=== PATIENT | male | born 1940 | race Caucasian/White ===

== ENCOUNTER 2016-05-29 16:05 | Emergency (ER) | payer OTHER ==
[~2016-05-29 16:05] MED LIST: OXYC1TAB3 PO
[2016-05-29 16:08] VITALS: TEMP 36.9; Ht 175.3 cm
[2016-05-29] MEDS ORDERED: MoRPHine SULFATE 10 MG/ML CARP/VIAL IM STA (16:39)
[2016-05-29] MEDS ORDERED: CLN150 PO (16:53)
[2016-05-29] MEDS ORDERED: METO25TA3 PO (16:53)
--- NOTE | 2016-05-29 17:54 | DIAGNOSTIC IMAGING REPORT ---
LUMBAR SPINE CT CT DOSE: 1016.30 mGy.cm HISTORY: severe lower back pain. TECHNIQUE: Multiaxial CT images of the lumbar spine were performed and reformatted in the sagittal and coronal plane without the use of contrast. COMPARISON: Lumbar spine 03/03/2016. 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 This is not significantly changed. Left-sided nephrolithiasis. No hydronephrosis identified. Paraspinal soft tissues are unremarkable. The visualized sacrum appears intact. There is 2 mm of anterolisthesis of L5 on S1. Moderate facet degenerative changes at L4-L5 and L5-S1. There is moderate to severe disc space narrowing at L4-L5 and L5-S1. Endplate focal indentations are consistent with Schmorl's nodes. Mild disc space narrowing at L1-L2, L2-L3, and L3-L4. No acute fractures within the lumbar spine. Mild central canal narrowing at L3-L4 and L4-L5 due to broad-based posterior disc bulges and facet hypertrophy. IMPRESSION: 1. No acute fractures identified within the lumbar spine. 2. Multilevel degenerative changes at described above. 3. Left-sided nephrolithiasis. No hydronephrosis. 4. Mild aneurysmal dilatation of the abdominal aorta which measures up to 3.5 cm. This is similar to the prior study. Electronically signed by: Moose Bello M.D. 05/29/2016 5:52 PM Dictated Date/Time: 05/29/2016 5:46 PM
[2016-05-29] MEDS ORDERED: OXYC1TAB3 PO (18:28)
[2016-05-29 19:13] VITALS: BP 114/81; PULSE 72; O2SAT 99
--- NOTE | 2016-05-29 23:04 | EMERGENCY ROOM VISIT NOTE ---
History Report prepared by Sanjeev: Roseann Jovel Under the Supervision of: Dr. Paresh Zapata D.O. First contact with patient: 16:19 Chief Complaint: BACK PAIN Stated Complaint: LOWER BACK PAIN, LEG PAIN SWOLLEN, SHOULDER PAIN History of Present Illness The patient is a 76 year old male who presents to the Emergency Room with complaints of worsening lower back pain over the past several weeks. He has had chronic back pain for over a year but it has been gradually getting worse. His pain is worse with movement. The pain does not radiate down his buttocks. He also complains of bilateral ankle pain, right worse than left. He denies any falls prior to the onset of his pain. Denies weakness or numbness in his groin or legs. His current discomfort is an 8/10 in severity. He took Tylenol today with no relief. He does not have a history of cancer. He does not follow with an orthopedic spine doctor. Pt denies headache, change in vision, fevers, chest pain, shortness of breath, nausea, vomiting, diarrhea, pain with urination, and melena. No weakness or numbness in the legs. Source of History: patient Onset: a year ago Position: back (lower) Symptom Intensity: 8/10 Timing: worsening Modifying Factors (Worsening): movement Associated Symptoms: No SOB, No chest pain, No diarrhea, No fevers, No headache, No melena, No nausea, No urinary symptoms, No vomiting Note: Other symptoms: bilateral ankle pain Review of Systems See HPI for pertinent positives & negatives. A total of 10 systems reviewed and were otherwise negative. Past Medical & Surgical Medical Problems: (1) Dementia (2) Emphysema lung Family History Diabetes mellitus FHx: cancer Hypertension Social History Smoking Status: Former Smoker Drug Use: none Marital Status: single Housing Status: lives with family Occupation Status: retired Current/Historical Medications Scheduled Metoprolol Succ (Toprol Xl) (Toprol-Xl), 25 MG PO DAILY Scheduled PRN Oxycodone Immediate Rel Tab (Roxicodone Ir), 5 MG PO Q4H PRN for Severe Pain Sulindac (Sulindac), 1 TAB PO BID PRN for Pain Allergies Coded Allergies: No Known Allergies (Unverified , 03/03/16) Physical Exam Vital Signs Date Time Temp Pulse Resp B/P Pulse Ox O2 Delivery O2 Flow Rate FiO2 05/29/16 19:13 72 114/81 99 05/29/16 18:00 77 16 109/80 99 05/29/16 16:08 36.9 70 18 100/88 99 Room Air Physical Exam GENERAL: Sitting up in bed, holding his right lower back, moderate distress, disheveled. EYE EXAM: normal conjunctiva OROPHARYNX: no exudate, no erythema, lips, buccal mucosa, and tongue normal and mucous membranes are moist NECK: supple, no nuchal rigidity, no adenopathy, non-tender LUNGS: Clear to auscultation. Normal chest wall mechanics HEART: no murmurs, S1 normal and S2 normal ABDOMEN: abdomen soft, non-tender, normo-active bowel sounds, no masses, no rebound or guarding. BACK: Back is symmetrical on inspection and there is no deformity, no midline tenderness, no CVA tenderness. SKIN: no rashes and no bruising UPPER EXTREMITIES: upper extremities are grossly normal. LOWER EXTREMITIES: No pitting edema. Flexion extension of the hip, knee, ankle and EHL 5/5 bilaterally. Gross sensation intact. Patellar and Achilles reflexes 1/4 bilaterally. Moderate pain with flexion of the right hip. NEURO EXAM: Normal sensorium, cranial nerves II-XII grossly intact, normal speech, no gross weakness of arms. Medical Decision & Procedures ER Provider Diagnostic Interpretation: Results have been interpreted by the radiologist and reviewed by me. LUMBAR SPINE CT CT DOSE: 1016.30 mGy.cm HISTORY: severe lower back pain. TECHNIQUE: Multiaxial CT images of the lumbar spine were performed and reformatted in the sagittal and coronal plane without the use of contrast. COMPARISON: Lumbar spine 03/03/2016. 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 This is not significantly changed. Left-sided nephrolithiasis. No hydronephrosis identified. Paraspinal soft tissues are unremarkable. The visualized sacrum appears intact. There is 2 mm of anterolisthesis of L5 on S1. Moderate facet degenerative changes at L4-L5 and L5-S1. There is moderate to severe disc space narrowing at L4-L5 and L5-S1. Endplate focal indentations are consistent with Schmorl's nodes. Mild disc space narrowing at L1-L2, L2-L3, and L3-L4. No acute fractures within the lumbar spine. Mild central canal narrowing at L3-L4 and L4-L5 due to broad-based posterior disc bulges and facet hypertrophy. IMPRESSION: 1. No acute fractures identified within the lumbar spine. 2. Multilevel degenerative changes at described above. 3. Left-sided nephrolithiasis. No hydronephrosis. 4. Mild aneurysmal dilatation of the abdominal aorta which measures up to 3.5 cm. This is similar to the prior study. Electronically signed by: Moose Bello M.D. 05/29/2016 5:52 PM Dictated Date/Time: 05/29/2016 5:46 PM Medications Administered Medications (Trade) Dose Ordered Sig/Alex Route Start Time Stop Time Status Last Admin Dose Admin Morphine Sulfate (MoRPHine SULFATE INJ) 6 mg NOW STAT IM 05/29/16 16:39 05/29/16 16:41 DC 05/29/16 17:18 6 MG ED Course ED COURSE: Vital signs were reviewed and showed normal vitals. The patients medical record was reviewed The above diagnostic studies were performed and reviewed. ED treatments and interventions as stated above. 1627: The patient was evaluated in room B7. A complete history and physical examination was performed. 1639: Ordered Morphine Sulfate 6 mg IM. 1822: Upon reevaluation, the patient is resting comfortably.I discussed my findings with the patient and he understands and agrees with the treatment plan. Based on the patients age, coexisting illnesses, exam and lab findings the decision to treat as an outpatient was made. The patient remained stable while under my care. The patient appeared well at the time of discharge. Medical Decision Differential diagnoses includes but is not limited to lumbar radiculopathy, muscle strain, facture, cauda equina, mass, and disc herniation. Patient is a 76-year-old male who presents the ER with lower back pain. This present for the past year worsening over the past several weeks. No weakness or numbness. No saddle paresthesias. No history cancer. No IV drug use. Patient is completely neurologically intact. CT of the lumbar spine. 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 Patient was given IV morphine and had improvement of his symptoms. He was discharged follow with his primary care doctor and orthopedic spine. Discussed with Pt concerning signs and symptoms to watch out for. Pt was instructed to follow up with their PCP and discussed with the patient their option to return to the ED at anytime for persistent or worsening symptoms. The appropriate anticipatory guidance and out-patient management, including indications for return to the emergency department, were explained at length to the patient and understood. [place] Drug Monitoring Program Search Results: patient reviewed within database, no issues identified Impression Primary Impression: Acute low back pain Scribe Attestation The scribe's documentation has been prepared under my direction and personally reviewed by me in its entirety. I confirm that the note above accurately reflects all work, treatment, procedures, and medical decision making performed by me. Departure Information Dispostion Home / Self-Care Prescriptions Oxycodone Immediate Rel Tab (ROXICODONE IR) 5 Mg Tab 5 MG PO Q4H Y for Severe Pain, #20 TAB Prov: Paresh Zapata, DO 05/29/16 Referrals No Doctor, Assigned (PCP) Patient Instructions Back Pain - [facility], [facility] Additional Instructions Please follow up with your primary care doctor with in the next 24 hours. Any worsening of your symptoms, please return to the ED immediately. This includes weakness or numbness in her colon, weakness or numbness in the legs, worsening pain, fevers greater than 100.4, or any other concerning signs or symptoms from your standpoint. You were given medications during this visit that will inhibit your ability to drive, operate machinery and work. Please do NOT drive, operate machinery or work for the next 12hrs. You were also given a prescription for a narcotic/ OxyIR. While taking this medication you should also not drive, operate machinery and or work. You should also not take this medication in combination with any other narcotics or benzodiazepines. Please do not take this medication will driving or with drinking alcohol. Problem Qualifiers Primary Impression: Acute low back pain Back pain laterality: unspecified Sciatica presence: without sciatica Qualified Codes: M54.5 - Low back pain
== END 2016-05-29 19:10 | disposition home or self-care (01) ==
LOC: C.EDB 16:07
DX: M54.5 Low back pain (principal); G89.29 Other chronic pain; M25.571 Pain in right ankle and joints of right foot; M25.572 Pain in left ankle and joints of left foot; F03.90 Unspecified dementia, unspecified severity, without behavioral disturbance, psychotic disturbance, mood disturbance, and anxiety; Z79.899 Other long term (current) drug therapy

== ENCOUNTER → 2016-11-21 | Outpatient (CLI) | payer OTHER ==
[~2016-11-21] MED LIST changes: +CLN150 PO; +METO25TA3 PO
--- NOTE | 2016-11-21 16:52 | DIAGNOSTIC IMAGING REPORT ---
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 Memory loss TECHNIQUE: Multiple axial CT images of the head were obtained without contrast. A dose lowering technique was utilized adhering to the principles of ALARA. CT DOSE: 823.94 mGycm COMPARISON: None. FINDINGS: No acute intracranial hemorrhage, midline shift, mass, large territorial ischemia or abnormal extra-axial collection. There is moderate cerebral atrophy with ex vacuo ventriculomegaly. Multifocal scattered areas of low-attenuation are seen within the periventricular and subcortical white matter of the cerebral hemispheres bilaterally compatible with chronic microvascular ischemic changes. Focal area of encephalomalacia of the right frontal lobe is compatible with prior infarction. Focal areas of low attenuation within the region of the left lentiform nucleus are compatible with remote lacunar infarctions. There is a large 5 mm calcified plaques in the region of the proximal right M1 segment. Focal areas of CSF attenuation abutting the falx cerebri near the apex is seen with focus on the left measuring up to 3.9 x 2.0 cm are suspicious for arachnoid cysts. The calvarium is intact. The paranasal sinuses, mastoid air cells, and middle ear cavities are clear. IMPRESSION: 1. No acute intracranial hemorrhage, midline shift or territorial ischemia. 2. Moderate central atrophy with ex vacuo ventriculomegaly and evidence of chronic microvascular ischemic changes. Encephalomalacia of the right frontal lobe is compatible with remote infarction. 3. 5 mm atherosclerotic plaque is noted in the region of the right M1 segment, chronicity unknown without comparison study. The above report was generated using voice recognition software. It may contain grammatical, syntax or spelling errors. Electronically signed by: Hugo Sharma M.D. 11/21/2016 4:51 PM Dictated Date/Time: 11/21/2016 4:46 PM
== END | disposition home or self-care (01) ==
LOC: C.CTS 16:15
PROVIDERS: ATTEND Family Medicine
DX: F03.90 Unspecified dementia, unspecified severity, without behavioral disturbance, psychotic disturbance, mood disturbance, and anxiety (principal); G31.9 Degenerative disease of nervous system, unspecified; G93.89 Other specified disorders of brain

== ENCOUNTER 2017-05-29 19:57 | Emergency (ER) | payer OTHER ==
[~2017-05-29 19:57] MED LIST changes: -OXYC1TAB3 PO
[2017-05-29 20:01] VITALS: TEMP 36.2
[2017-05-29] MEDS ORDERED: SODIUM CHLORIDE 0.9% 1000ML 1,000 ML IV SCH (20:23)
[2017-05-29 20:37] VITALS: O2SAT 97; Ht 177.8 cm
[2017-05-29 20:54] LABS: BASO % 0.6 %; BASO ABS # 0.05 K/uL (0-0.2); EOS % 4.1 %; EOS ABS # 0.32 K/uL (0-0.5); HEMATOCRIT 37.8 % (42-52); HEMOGLOBIN 12.9 g/dL (14.0-18.0); IG# 0.02 K/uL (0.00-0.02); LYMPH % 27.6 %; LYMPH ABS # 2.14 K/uL (1.2-3.4); MEAN CELL VOLUME 93.1 fL (80-100); MEAN CORPUSCULAR HEMOGLOBIN 31.8 pg (25-34); MEAN CORPUSCULAR HGB CONC 34.1 g/dl (32-36); MEAN PLATELET VOLUME 9.3 fL (7.4-10.4); MONO % 10.6 %; MONO ABS # 0.82 K/uL (0.11-0.59); NEUT % 56.8 %; PLATELET COUNT 200 K/uL (130-400); RED CELL DISTRIBUTION WIDTH CV 13.5 % (11.5-14.5); RED CELL DISTRIBUTION WIDTH SD 45.9 fL (36.4-46.3); WHITE BLOOD COUNT 7.75 K/uL (4.8-10.8)
--- NOTE | 2017-05-29 20:59 | DIAGNOSTIC IMAGING REPORT ---
CHEST ONE VIEW PORTABLE CLINICAL HISTORY: 77 years-old Male presenting with Stroke. TECHNIQUE: Portable upright AP view of the chest was obtained. COMPARISON: None. FINDINGS: Atherosclerosis of aortic arch. Cardiac silhouette enlarged. Subtle perihilar vascular indistinctness. No large pleural effusion or pneumothorax. Osteopenia may be present. IMPRESSION: 1. Cardiomegaly with minimal central opacities suggested. This could suggest volume overload versus early pulmonary edema. Electronically signed by: Cesar Willoughby M.D. 05/29/2017 8:58 PM Dictated Date/Time: 05/29/2017 8:56 PM
[2017-05-29 21:05] LABS: INR 0.9 (0.9-1.1); PTT PATIENT 24.5 SECONDS (21.0-31.0)
[2017-05-29] MEDS ORDERED: AMLO-114 PO (21:14)
[2017-05-29] MEDS ORDERED: ALLO100T PO (21:14)
--- NOTE | 2017-05-29 21:22 | DIAGNOSTIC IMAGING REPORT ---
HEAD WITHOUT CONTRAST (CT) CLINICAL HISTORY: 77 years-old Male presenting with confusion?VOGT eval for cva/bleed. TECHNIQUE: Multidetector CT imaging of the head was performed without the use of intravenous contrast. IV contrast: None. A dose lowering technique was used consistent with the principles of ALARA (as low as reasonably achievable). COMPARISON: 11/21/2016. CT DOSE (mGy.cm): The estimated cumulative dose is 687.98 mGy.cm. FINDINGS: Accounts Receivable Collector topogram: Unremarkable. Proportional ventricular and sulcal prominence, likely age-related parenchymal volume loss. Periventricular and subcortical white matter hypoattenuation, nonspecific but likely indicative of chronic small vessel ischemic change. Cystic encephalomalacia and gliosis in the inferior or median right frontal lobe consistent with prior infarct. No mass effect or midline shift. No hemorrhage or acute territorial infarct. No extra-axial fluid collection. Paranasal sinuses and mastoid air cells clear. Calvarium intact. Focal sites of infiltration in the subcutaneous tissue of the suboccipital region are unchanged from prior. IMPRESSION: 1. Chronic small vessel ischemic change. No acute intracranial abnormality. 2. Chronic right frontal lobe infarct. Electronically signed by: Cesar Willoughby M.D. 05/29/2017 9:21 PM Dictated Date/Time: 05/29/2017 9:18 PM
[2017-05-29 21:23] LABS: BLOOD UREA NITROGEN 16 mg/dl (7-18); CALCIUM 8.4 mg/dl (8.5-10.1); CARBON DIOXIDE 31 mmol/L (21-32); CREATININE 1.28 mg/dl (0.60-1.40); GLUCOSE 124 mg/dl (70-99); POTASSIUM 3.8 mmol/L (3.5-5.1); SODIUM 138 mmol/L (136-145)
[2017-05-29 21:55] VITALS: BP 163/96; PULSE 69; O2SAT 92
--- NOTE | 2017-05-30 00:19 | EMERGENCY ROOM VISIT NOTE ---
History Report prepared by Sanjeev: Shanique Perez Under the Supervision of: Dr. Cb Mccurdy M.D. First contact with patient: 20:10 Chief Complaint: ALTERED MENTAL STATUS Stated Complaint: CHANGE OF MENTAL STATUS History of Present Illness The patient is a 77 year old male who presents to the Emergency Room with complaints of an episode of change in mental status occurring around 3 pm. Per daughter, the patient was saying "its my time, I'm all done". She states the patient kept repeating "my times up" and similar phrases for a couple hours. She states the patient told her she was hearing voices. He was unsure of who's voices he was hearing. He states sometimes he hears voices. Presently, he denies hearing any voices. Per daughter, when the patient had the change in his mental status he seemed afraid, his face looked "blank", and his eyes appeared "off". The patient had a head CT a couple years ago because he had an episode of a confusion. The CT showed evidence of an old stroke. Per daughter, at baseline, the patient is confused. The patient has a history of dementia. The patient's daughter has been caring for him for the past two years. She reports today was the first time in two years he has recognized her has his daughter and has been able to recall her name. Per daughter, the patient had episodes of vomiting occurring last week. The patient has a history of arthritic gout. History limited secondary to dementia. The patient does complain of a headache currently. He denies any chest pain or abdominal pain. Source of History: family History Limited By: dementia Onset: 3 hours ago Position: other (generalized) Quality: other (change in mental status) Timing: other (episode) Modifying Factors (Relieving): other (none) Review of Systems ROS limited secondary to dementia. Past Medical & Surgical Medical Problems: (1) Dementia (2) Emphysema lung Family History Diabetes mellitus FHx: cancer Hypertension Social History Smoking Status: Former Smoker Drug Use: none Marital Status: single Housing Status: lives with family Occupation Status: retired Current/Historical Medications Scheduled Allopurinol (Zyloprim), 100 MG PO BID Amlodipine (Norvasc), 10 MG PO DAILY Allergies Coded Allergies: No Known Allergies (Unverified , 05/29/17) Physical Exam Vital Signs Date Time Temp Pulse Resp B/P (MAP) Pulse Ox O2 Delivery O2 Flow Rate FiO2 05/29/17 21:55 69 16 163/96 92 Room Air 05/29/17 20:47 61 05/29/17 20:37 97 Room Air 05/29/17 20:01 36.2 53 16 157/62 96 Room Air Physical Exam Constitutional: Vital signs reviewed. Eyes: Pupils are equal round reactive to light. Conjunctiva are noninjected. ENT: Pharynx is clear without erythema or exudate. Mucous membranes are moist. Neck supple without meningeal signs. Respiratory: Clear to auscultation bilaterally. Breath sounds are equal bilaterally. Cardiovascular: Regular rate and rhythm. No rubs or gallops. GI: Soft, nondistended and nontender. Bowel sounds are present. Musculoskeletal: No peripheral edema. No lower extremity tenderness. Integumentary: No cyanosis. Neurological: The patient is awake and alert. Cranial nerves II-XII are intact. Motor is 5 out of 5 all extremities. Sensation is intact to light touch all extremities. Normal speech. Psychiatric: The patient does not appear anxious, difficult to assess affect. Medical Decision & Procedures ER Provider Diagnostic Interpretation: Radiology results as stated below per my review and the radiologist's interpretation: CHEST ONE VIEW PORTABLE FINDINGS: Atherosclerosis of aortic arch. Cardiac silhouette enlarged. Subtle perihilar vascular indistinctness. No large pleural effusion or pneumothorax. Osteopenia may be present. IMPRESSION: 1. Cardiomegaly with minimal central opacities suggested. This could suggest volume overload versus early pulmonary edema. Electronically signed by: Cesar Willoughby M.D. HEAD WITHOUT CONTRAST (CT) FINDINGS: Cut Off Machine Unloader topogram: Unremarkable. Proportional ventricular and sulcal prominence, likely age-related parenchymal volume loss. Periventricular and subcortical white matter hypoattenuation, nonspecific but likely indicative of chronic small vessel ischemic change. Cystic encephalomalacia and gliosis in the inferior or median right frontal lobe consistent with prior infarct. No mass effect or midline shift. No hemorrhage or acute territorial infarct. No extra-axial fluid collection. Paranasal sinuses and mastoid air cells clear. Calvarium intact. Focal sites of infiltration in the subcutaneous tissue of the suboccipital region are unchanged from prior. IMPRESSION: 1. Chronic small vessel ischemic change. No acute intracranial abnormality. 2. Chronic right frontal lobe infarct. Electronically signed by: Cesar Willoughby M.D. Laboratory Results 05/29/17 20:45 Red Blood Count 4.06, Mean Corpuscular Volume 93.1, Mean Corpuscular Hemoglobin 31.8, Mean Corpuscular Hemoglobin Concent 34.1, Mean Platelet Volume 9.3, Neutrophils (%) (Auto) 56.8, Lymphocytes (%) (Auto) 27.6, Monocytes (%) (Auto) 10.6, Eosinophils (%) (Auto) 4.1, Basophils (%) (Auto) 0.6, Neutrophils # (Auto ) 4.40, Lymphocytes # (Auto) 2.14, Monocytes # (Auto) 0.82, Eosinophils # (Auto ) 0.32, Basophils # (Auto) 0.05 05/29/17 20:45 Test 05/29/17 20:45 05/29/17 20:54 05/29/17 21:30 White Blood Count 7.75 K/uL (4.8-10.8) Red Blood Count 4.06 M/uL (4.7-6.1) Hemoglobin 12.9 g/dL (14.0-18.0) Hematocrit 37.8 % (42-52) Mean Corpuscular Volume 93.1 fL (80-100) Mean Corpuscular Hemoglobin 31.8 pg (25-34) Mean Corpuscular Hemoglobin Concent 34.1 g/dl (32-36) Platelet Count 200 K/uL (130-400) Mean Platelet Volume 9.3 fL (7.4-10.4) Neutrophils (%) (Auto) 56.8 % Lymphocytes (%) (Auto) 27.6 % Monocytes (%) (Auto) 10.6 % Eosinophils (%) (Auto) 4.1 % Basophils (%) (Auto) 0.6 % Neutrophils # (Auto) 4.40 K/uL (1.4-6.5) Lymphocytes # (Auto) 2.14 K/uL (1.2-3.4) Monocytes # (Auto) 0.82 K/uL (0.11-0.59) Eosinophils # (Auto) 0.32 K/uL (0-0.5) Basophils # (Auto) 0.05 K/uL (0-0.2) RDW Standard Deviation 45.9 fL (36.4-46.3) RDW Coefficient of Variation 13.5 % (11.5-14.5) Immature Granulocyte % (Auto) 0.3 % Immature Granulocyte # (Auto) 0.02 K/uL (0.00-0.02) Prothrombin Time 9.9 SECONDS (9.0-12.0) Prothromb Time International Ratio 0.9 (0.9-1.1) Activated Partial Thromboplast Time 24.5 SECONDS (21.0-31.0) Partial Thromboplastin Ratio 0.9 Anion Gap 4.0 mmol/L (3-11) Estimated GFR () 62.2 Estimated GFR (Non- 53.6 BUN/Creatinine Ratio 12.8 (10-20) Calcium Level 8.4 mg/dl (8.5-10.1) Magnesium Level 2.1 mg/dl (1.8-2.4) Troponin I < 0.015 ng/ml (0-0.045) Bedside Glucose 123 mg/dl (70-99) Urine Color YELLOW Urine Appearance CLEAR (CLEAR) Urine pH 6.5 (4.5-7.5) Urine Specific [place] 1.018 (1.000-1.030) Urine Protein TRACE (NEG) Urine Glucose (UA) NEG (NEG) Urine Ketones NEG (NEG) Urine Occult Blood NEG (NEG) Urine Nitrite NEG (NEG) Urine Bilirubin NEG (NEG) Urine Urobilinogen NEG (NEG) Urine Leukocyte Esterase NEG (NEG) Urine WBC (Auto) 0 /hpf (0-5) Urine RBC (Auto) 0-4 /hpf (0-4) Urine Hyaline Casts (Auto) 0 /lpf (0-5) Urine Epithelial Cells (Auto) 0-5 /lpf (0-5) Urine Bacteria (Auto) NEG (NEG) Laboratory results as reviewed by me. Medications Administered Medications (Trade) Dose Ordered Sig/Alex Route Start Time Stop Time Status Last Admin Dose Admin Sodium Chloride 1,000 ml @ 50 mls/hr Q20H IV 05/29/17 20:23 05/29/17 22:44 DC 05/29/17 21:00 50 MLS/HR ECG Indication: altered mental status Rate (beats per minute): 61 Rhythm: sinus rhythm Findings: PVC, no acute ischemic change Change: EKG interpreted by me. ED Course 2011: The patient was evaluated in room A3. A complete history and physical exam was performed. 2022: Ordered Sodium Chloride 1000 ml @ 50 mls/hr IV. 2127: The patient is not complaining of any pain. He is not hearing any voices. 2207: I updated the patient and his family on his test results. On reassessment , he has no complaints. Medical Decision This is a 77-year-old male who presents with auditory hallucinations and change in mental status. Differential diagnosis includes intracranial hemorrhage, intracranial mass, metabolic derangement, CVA, infection, delirium. I did perform a limited focused review of portions of the patient's old chart on the electronic medical record. The patient has had no recent pertinent visits to this hospital. I did evaluate the patient as noted above. I did obtain history from the patient's daughter as well as the patient himself. He currently only complains of a headache. He otherwise has no complaints. He is no longer hearing any voices. IV access was established. The patient was placed on a continuous bus driver/monitor. I did order and personally review the patient's 12-lead EKG and chest x-ray as described above. I did order and review the patient's blood work as noted in the electronic medical record. I did order a CT of the head. I did review the images myself as well as the radiology report as described above. He has a old infarct but no acute process. Urinalysis is unremarkable. I did discuss the test results with the patient and his family. Currently patient has no complaints. He states his headache doesn't bother him anymore. He has no hallucinations. He is back to his baseline according to his family. He does wish to go home. At this time the cause of his change in mental status is unclear. I did recommend close follow with his doctor. He was discharged in good condition. Medication Reconcilliation Current Medication List: was personally reviewed by me Blood Pressure Screening Patient's blood pressure: Elevated blood pressure Blood pressure disposition: Referred to PCP Impression Primary Impression: Change in mental status Additional Impression: Auditory hallucinations Scribe Attestation The scribe's documentation has been prepared under my direct and personally reviewed by me in its entirety. I confirm that the note above accurately reflects all work, treatment, procedures, and medical decision making performed by me. Departure Information Dispostion Home / Self-Care Referrals Alphonse Hickman M.D. (PCP) Forms HOME CARE DOCUMENTATION FORM, IMPORTANT VISIT INFORMATION Patient Instructions My [facility] Additional Instructions You have been examined and treated today on an emergency basis only. This is not a substitute for, or an effort to provide, complete comprehensive medical care. It is impossible to recognize and treat all injuries or illnesses in a single emergency department visit. It is therefore important that you follow up closely with your physician. Call as soon as possible for an appointment. Return for worsening symptoms or if you develop fever, numbness or weakness on one side of your body, difficulties with your speech or walking, or any other concerning symptoms. Problem Qualifiers Primary Impression: Change in mental status Altered mental status type: unspecified Qualified Codes: R41.82 - Altered mental status, unspecified
== END 2017-05-29 22:23 | disposition home or self-care (01) ==
LOC: C.EDB 19:59 → C.EDA 22:23
DX: R41.82 Altered mental status, unspecified (principal); R44.0 Auditory hallucinations; M10.9 Gout, unspecified; F03.90 Unspecified dementia, unspecified severity, without behavioral disturbance, psychotic disturbance, mood disturbance, and anxiety; J43.9 Emphysema, unspecified; Z87.891 Personal history of nicotine dependence; Z83.3 Family history of diabetes mellitus; Z80.9 Family history of malignant neoplasm, unspecified; Z79.899 Other long term (current) drug therapy